=== PATIENT | male | born 2000 | race Caucasian/White ===

== ENCOUNTER 2019-02-06 21:22 | Emergency (ER) | payer OTHER ==
[~2019-02-06] VITALS: Ht 188 cm; Wt 83.9 kg
[2019-02-06 21:22] VITALS: BP 118/57
== END 2019-02-07 00:32 | disposition home or self-care (01) ==
LOC: ER 21:30
DX: S93.501A Unspecified sprain of right great toe, initial encounter (principal); X50.9XXA Other and unspecified overexertion or strenuous movements or postures, initial encounter; Y93.68 Activity, volleyball (beach) (court); Y92.832 Beach as the place of occurrence of the external cause; Y99.8 Other external cause status
CPT/HCPCS: 73660-TC